=== PATIENT | female | born 1930 | race Caucasian/White ===

== ENCOUNTER → 2017-08-27 | Outpatient (CLI) | payer MEDICARE, OTHER ==
--- NOTE | 2017-08-27 18:04 | CT ---
EXAMINATION TYPE: CT chest wo con DATE OF EXAM: 08/27/2017 COMPARISON: 04/06/2016 HISTORY: Patient complains of shortness of breath. CT DLP: 117.4 mGycm. Automated Exposure Control for Dose Reduction was Utilized. TECHNIQUE: CT scan of the thorax is performed without IV contrast. FINDINGS: There is mild pleural thickening at the lung apices. There is mild calcified pleural plaque on the le ft and right anterior chest wall. Thoracic aorta is atheromatous. There is no mediastinal adenopathy. There are no hilar masses. Heart is enlarged. There is no pericardial effusion. There is minimal int erstitial linear density at the lung bases. There is no pleural effusion. The bony thorax appears int act. There are sternal wires. There is a 3 cm cortical cyst on the lateral left kidney. IMPRESSION: There is evidence of pleural and pulmonary scarring. Atherosclerotic vascular disease. Ca rdiomegaly. No evidence of a pulmonary mass. There is improved aeration of the lung bases compared to last exam and clearing of some patchy atelectasis.
== END | disposition home or self-care (01) ==
LOC: RADCTMAIN 15:48
PROVIDERS: ATTEND Internal Medicine Critical Care Medicine
DX: I51.7 Cardiomegaly (principal); I99.8 Other disorder of circulatory system; Z88.1 Allergy status to other antibiotic agents
CPT/HCPCS: 36415; 71250; 82565; 84520

== ENCOUNTER → 2017-10-20 | Outpatient (CLI) | payer MEDICARE, OTHER ==
[~2017-10-20] MED LIST: REGADENOSON 0.4 MG/5 ML SYRINGE IV ONE
--- NOTE | 2017-10-20 10:46 | NM ---
EXAMINATION TYPE: NM stress lexiscan cardiolite DATE OF EXAM: 10/20/2017 COMPARISON: NONE HISTORY: Precordial chest pain and abnormal EKG. TECHNIQUE: After the intravenous administration of 10.61 mCi Tc 99m Sestamibi - Cardiolite resting S PECT images acquired 45 minutes post injection. The patient received 0.4mg Lexiscan, 29.8 mCi Tc 99m Sestamibi - Stress images obtained [address] injection FINDINGS: Review of stress and rest SPECT images demonstrates no distinct perfusion abnormality. Gated analysi s shows normal wall motion with an estimated left ventricular ejection fraction of 60 %. IMPRESSION: No scintigraphic evidence for reversible ischemia.
--- NOTE | 2017-10-20 12:52 | EST ---
EXERCISE STRESS AGE: 87 SEX: F HT: 62" WT: 125 PROTOCOL: Lexiscan Cardiolite Stress Test HEART RATE REST: 61 BLOOD PRESSURE REST: 133/84 MAXIMUM HEART RATE ACHIEVED: 79 MAXIMUM BLOOD PRESSURE: 133/84 85% MPHR: 111 100% MPHR: 131 INDICATIONS: Difficulty in breathing CLINICAL INFORMATION: STRESS DATA: Pretesting physical examination showed heart rate of 61, pressure is 133/84 mmHg. Baseline EKG showed sinus mechanism; 0.4 mg of Lexiscan was given to the patient over 15 seconds per protocol. The max heart rate was 79 beats per minute and maximum pressure was 133/84 mmHg. Clinically, the patient did not have any symptoms of chest pain or discomfort and the EKG did not show any significant ST or T-wave abnormalities consistent with ischemia. CONCLUSION: 1. Nondiagnostic electrocardiogram stress testing in response to Lexiscan. 2. Please follow up on the Cardiolite portion on a separate report from Radiology Department. MMODL / IJN: [id number] /
== END | disposition home or self-care (01) ==
LOC: RADNMMAIN 07:36
PROVIDERS: ATTEND Family Medicine
DX: R07.9 Chest pain, unspecified (principal); Z88.1 Allergy status to other antibiotic agents
CPT/HCPCS: 93017; 78452; A9500; J2785